=== PATIENT | male | born 1970 | race Caucasian/White ===

== ENCOUNTER 2016-05-22 16:50 | Emergency (ER) | payer OTHER ==
[2016-05-22 17:04] VITALS: RESP 16
--- NOTE | 2016-05-22 17:48 | EDPHY ---
General - History Smoking Status: Never smoked Narrative: CHIEF COMPLAINT: right hand pain HISTORY OF PRESENT ILLNESS: patient says he got angry yesterday and punched a door. This was yesterday afternoon. Since then he has had pain right hand the metacarpal. Primarily on the dorsum. No difficulty flexing the fingers or extending them, but it is painful. [id number] pain. Worse with palpation and movement. Some paresthesia. No numbness. No weakness. No wrist drop. No pain in the ipsilateral forearm, elbow, shoulder. Minimal pain in the right wrist but no pain in the anatomic snuffbox. He is right-hand dominant. No other associated complaints or modifying factors. PRIOR ORTHO INJURIES: None ESTABLISHED ORTHOPEDIST: none REVIEW OF SYSTEMS: Ten systems reviewed and are negative unless otherwise noted in the HPI EXAMINATION General Appearance: Alert, no distress Cardiovascular: Pulses normal throughout. symmetric radial pulses at 2+. Brisk cap refill In all 10 fingers. Neurological: A&O, sensory symmetric, strength symmetric . No wrist drop. Skin: Warm and dry, no rash . There is ecchymosis on the palmar aspect of the right hand. There is also some edema and ecchymosis on the dorsum of the right hand. Extremities: Significant tender palpation of the right 5th metacarpal. This is worse at the proximal end of the metacarpal. No crepitus. No deformity. Edema noted. Full flexion-extension retain. There is no wrist drop. Full opposition and abduction. Two-point sensation intact. Psychiatric: Mood and affect normal MDM: 5:40 p.m. punched injury to the right hand yesterday at 12:00 p.m.. There is pain of the right hand over the 5th metacarpal. There is ecchymosis bilaterally more on the palm on the dorsum. Erythema and edema noted. He is neurovascular intact with significant pain on palpation of the distal 5th metacarpal on the right hand. Two-point sensation intact. No wrist drop. No snuffbox tenderness 5:48 p.m. this fracture at the base of the right 5th metacarpal. No fracture distally. cascade of the fingers is normal without entrapment. He is neuro intact. He will be placed in an appropriate splint. Discharged home with pain medication, instructions to ice and elevate, take ibuprofen [id number] and follow up with hand surgeon for definitive care. We discussed return to the emergency department precautions. I answered all his questions and he is discharged home stable condition, neurovascular intact. ED Precautions: Worsening pain. Erythema, edema, cyanosis, pallor, paresthesia or anesthesia. SUPERVISION: This patient was independently evaluated without the aide of supervising physician. (Mario Morales) Discussion: The patient was evaluated and managed by the Physician Dyed Yarn Operator/ Nurse Practitioner. My co-signature indicates that I have reviewed this chart and I agree with the findings and plan of care as documented. I am the secondary supervising physician. (Selena Tobin) - Objective Vital Signs: Initial Vital Signs Temperature (C) 36.5 C 05/22/16 17:00 Heart Rate 83 05/22/16 17:00 Respiratory Rate 16 05/22/16 17:00 Blood Pressure 126/77 H 05/22/16 17:00 O2 Sat (%) 94 05/22/16 17:00 O2 Delivery Mode Room Air Allergies/Adverse Reactions: No Known Allergies Allergy (Unverified 05/22/16 17:04) Home Medications: Medication Instructions Recorded Hydrocodone/APAP 5/325 [[place] 1 - 2 tab PO Q4H PRN #10 tab 05/22/16 5/325 (*)] Departure - Departure Disposition: Home, Routine, Self-Care Clinical Impression: Fracture of metacarpal of right hand, closed Condition: Good Instructions: Hand Fracture (ED) Additional Instructions: Splint as instructed. Ibuprofen [id number] 6-800 mg every 8 hours. pain medication with caution as prescribed as needed. Return to the ER for worsening pain, numbness, tingling, increasing swelling or wrist drop as discussed Referrals: NONE *PRIMARY CARE P,. [Primary Care Provider] - As per Instructions Bart Luu MD [Medical Doctor] - As per Instructions Prescriptions: Hydrocodone/APAP 5/325 [[place] 5/325 (*)] 1 - 2 tab PO Q4H PRN #10 tab PRN Reason: Pain, Moderate
[2016-05-22 18:12] VITALS: BP 129/84; PULSE 67; TEMP 98.1; O2SAT 95
== END 2016-05-22 18:10 | disposition home or self-care (01) ==
PROC: 2W3EX1Z Immobilization of Right Hand using Splint (ICD-10-PCS; principal; 2016-05-22)
DX: S62.316A Displaced fracture of base of fifth metacarpal bone, right hand, initial encounter for closed fracture (principal); W22.8XXA Striking against or struck by other objects, initial encounter

== ENCOUNTER 2018-04-16 12:21 | Emergency (ER) | payer OTHER ==
[2018-04-16] MEDS ORDERED: NS 1,000 ML IV ONE (12:58)
[2018-04-16 13:05] LABS: PLATELET COUNT 239 10^3/uL (150-400)
--- NOTE | 2018-04-16 13:17 | EDPHY ---
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 Onset of lightheadedness in shower this morning. The lightheadedness has persisted throughout the morning and occurs especially when he is standing up. However, he has episodes of intermittent lightheadedness while sitting as well. No syncopal episodes and no prior similar symptoms. Recently traveled from [place] to [place]. No shortness of breath or chest pain. No recent illness and no black/bloody stools. REVIEW OF SYSTEMS: COMPLETE 10 POINT ROS REVIEWED AND IS NEGATIVE EXCEPT FOR THE NOTED ELEMENTS IN THE HPI - Personal History Current Tetanus/Diphtheria Vaccine: Yes - Medical/Surgical History Hx Asthma: No Hx Chronic Respiratory Disease: No Hx Diabetes: No Hx Cardiac Disease: No Hx Renal Disease: No Hx Cirrhosis: No Hx Alcoholism: No Hx HIV/AIDS: No Hx Splenectomy or Spleen Trauma: No Other PMH: Irregular heartbeat, concussion - Social History Smoking Status: Never smoked Alcohol Use: Sober Drug Use: None - Physical Exam Exam: General Appearance: Alert, pleasant Eyes: Pupils equal and round, no conjunctival pallor ENT, Mouth: Mucous membranes moist Neck: Normal inspection Respiratory: Lungs are clear to auscultation Cardiovascular: Regular rate and rhythm, no murmur Gastrointestinal: Abdomen is soft and nontender Neurological: A&O, nonfocal, normal gait Skin: Warm and dry, no rash Extremities: Nontender, no pedal edema Psychiatric: Mood and affect normal Constitutional: Initial Vital Signs Temperature (C) 36.5 C 04/16/18 12:28 Heart Rate 78 04/16/18 12:28 Respiratory Rate 18 04/16/18 12:28 Blood Pressure 96/65 L 04/16/18 12:28 O2 Sat (%) 94 04/16/18 12:28 O2 Delivery Mode Room Air Allergies/Adverse Reactions: No Known Allergies Allergy (Verified 04/16/18 12:28) Home Medications: Medication Instructions Recorded Hydrocodone/APAP 5/325 [[place] 1 - 2 tab PO Q4H PRN #10 tab 05/22/16 5/325 (*)] Medical Decision Making - Diagnostics EKG Interpretation: EKG interpreted by me reveals normal sinus rhythm, rate 70, borderline left axis deviation, borderline ST segment depression in leads V4 through V6. Interpretation: Abnormal EKG ED Course/Re-evaluation: This patient presents with lightheadedness. Initial triage blood pressure 96/ 65. Stat EKG reveals normal sinus rhythm, without dysrhythmia or ischemia. 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 He apparently has a long history of an irregular heartbeat (likely PACs). I doubt that the PACs are causing the lightheadedness. IV normal saline 1 L given for possible dehydration. After IV fluids, the patient's orthostatics were checked and are normal. He feels better after IV fluids and no longer feels dizzy. Laboratory tests are unremarkable, except for leukocytosis. I again questioned the patient regarding signs/symptoms of illness. He has had no recent illness and does not currently feel ill. Safe and stable for discharge home. Will follow up with PCP. Warning signs discussed. Differential Diagnosis: Differential diagnosis includes though is not limited to cardiac dysrhythmia, CVA, TIA, GI bleed, sepsis, hypoglycemia. - Data Points Laboratory Results: Laboratory Results 04/16/18 12:50 04/16/18 12:50 04/16/18 04/16/18 04/16/18 13:15 12:50 12:50 WBC 14.85 10^3/uL H 10^3/uL (3.80-9.50) RBC 5.05 10^6/uL 10^6/uL (4.40-6.38) Hgb 15.2 g/dL g/dL (13.7-17.5) Hct 44.3 % % (40.0-51.0) MCV 87.7 fL fL (81.5-99.8) MCH 30.1 pg pg (27.9-34.1) MCHC 34.3 g/dL g/dL (32.4-36.7) RDW 13.0 % % (11.5-15.2) Plt Count 239 10^3/uL 10^3/uL (150-400) MPV 10.9 fL fL (8.7-11.7) Neut % (Auto) 92.9 % H % (39.3-74.2) Lymph % (Auto) 2.8 % L % (15.0-45.0) Mills % (Auto) 3.5 % L % (4.5-13.0) Eos % (Auto) 0.2 % L % (0.6-7.6) Baso % (Auto) 0.3 % % (0.3-1.7) Nucleat RBC Rel Count 0.0 % % (0.0-0.2) Absolute Neuts (auto) 13.80 10^3/uL H 10^3/uL (1.70-6.50) Absolute Lymphs (auto) 0.42 10^3/uL L 10^3/uL (1.00-3.00) Absolute Monos (auto) 0.52 10^3/uL 10^3/uL (0.30-0.80) Absolute Eos (auto) 0.03 10^3/uL 10^3/uL (0.03-0.40) Absolute Basos (auto) 0.04 10^3/uL 10^3/uL (0.02-0.10) Absolute Nucleated RBC 0.00 10^3/uL 10^3/uL (0-0.01) Immature Gran % 0.3 % % (0.0-1.1) Immature Gran # 0.04 10^3/uL 10^3/uL (0.00-0.10) RBC/WBC/PLT Morphology TNP Platelet Estimate ADEQUATE (ADEQ) D-Dimer Sodium 138 mEq/L mEq/L (135-145) Potassium 4.1 mEq/L mEq/L (3.5-5.2) Chloride 105 mEq/L mEq/L (97-110) Carbon Dioxide 26 mEq/l mEq/l (22-31) Anion Gap 7 mEq/L mEq/L (6-14) BUN 19 mg/dL mg/dL (7-23) Creatinine 0.9 mg/dL mg/dL (0.7-1.3) Estimated GFR > 60 Glucose 114 mg/dL H mg/dL (70-100) Calcium 9.1 mg/dL mg/dL (8.5-10.4) POC Troponin I 0.00 ng/mL ng/mL (0.00-0.08) 04/16/18 12:23 WBC RBC Hgb Hct MCV MCH MCHC RDW Plt Count MPV Neut % (Auto) Lymph % (Auto) Mills % (Auto) Eos % (Auto) Baso % (Auto) Nucleat RBC Rel Count Absolute Neuts (auto) Absolute Lymphs (auto) Absolute Monos (auto) Absolute Eos (auto) Absolute Basos (auto) Absolute Nucleated RBC Immature Gran % Immature Gran # RBC/WBC/PLT Morphology Platelet Estimate D-Dimer < 0.27 ug/mLFEU ug/mLFEU (0.00-0.50) Sodium Potassium Chloride Carbon Dioxide Anion Gap BUN Creatinine Estimated GFR Glucose Calcium POC Troponin I Medications Given: Discontinued Medications Sodium Chloride (Ns) 1,000 mls @ 0 mls/hr IV EDNOW ONE; Wide Open PRN Reason: Protocol Stop: 04/16/18 12:59 Last Admin: 04/16/18 13:18 Dose: 1,000 mls Point of Care Test Results: Chemistry 04/16/18 13:15 POC Troponin I 0.00 ng/mL ng/mL (0.00-0.08) Departure - Departure Disposition: Home, Routine, Self-Care Clinical Impression: Lightheadedness Condition: Good Instructions: Lightheadedness (ED) Referrals: Santana Yan MD [Primary Care Provider] - 1 day, if not improved
[2018-04-16 15:11] VITALS: BP 118/67
--- NOTE | 2018-04-17 04:41 | CPEKG ---
Test Reason : OPEN Blood Pressure : / mmHG Vent. Rate : 070 BPM Atrial Rate : 069 BPM P-R Int : 131 ms QRS Dur : 102 ms QT Int : 404 ms P-R-T Axes : 070 -23 026 degrees QTc Int : 436 ms Sinus rhythm Borderline left axis deviation Confirmed by Jose A Real ([id number]) on 04/17/2018 4:40:54 AM Referred By: PHYSICIAN ED Confirmed By:Jose A Real
== END 2018-04-16 15:10 | disposition home or self-care (01) ==
DX: R42 Dizziness and giddiness (principal); E86.9 Volume depletion, unspecified
CPT/HCPCS: 84484-ER